=== PATIENT | male | born 1990 | race American Indian/Alaskan Native ===

== ENCOUNTER 2017-12-05 20:41 | Emergency (ER) | payer SELFPAY ==
[2017-12-05 20:50] VITALS: O2SAT 98
[2017-12-05] MEDS ORDERED: Tdap Vaccine 0.5 ml Vial (10-64 yrs) IM ONE ×2 (20:56→21:05)
[2017-12-05] MEDS ORDERED: Amoxicillin-Clav 875-125 mg Tab PO STA (20:57)
[2017-12-05] MEDS ORDERED: Amoxicillin-Clav 875-125 mg Tab PO ONE (21:05)
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
[2017-12-05 22:11] VITALS: BP 120/60; PULSE 75; RESP 20; TEMP 98.7
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
== END 2017-12-05 22:39 | disposition home or self-care (01) ==
LOC: C.ER 20:41
DX: S61.411A Laceration without foreign body of right hand, initial encounter (principal); Y04.0XXA Assault by unarmed brawl or fight, initial encounter

== ENCOUNTER 2017-12-08 13:10 | Emergency (ER) | payer SELFPAY ==
[2017-12-08 13:17] VITALS: O2SAT 95
[2017-12-08] MEDS ORDERED: Bacitracin 500 Units/gm Oint Foilpak UD TOP STA (13:53)
[2017-12-08] MEDS ORDERED: ceFAZolin IV 1 gm in Dextrose 1 GM/50 ML BAG IVPB STA (13:54)
[2017-12-08] MEDS ORDERED: Bacitracin 500 Units/gm Oint Foilpak UD ONE (14:27)
[2017-12-08] MEDS ORDERED: ceFAZolin IV 1 gm in Dextrose 1 GM/50 ML BAG IVPB ONE (14:27)
--- NOTE | 2017-12-08 14:49 | C.PDOC ---
Time Seen by Provider: 12/08/17 13:11 Chief Complaint (Nursing): Wound Check Past Medical History Vital Signs: Last Vital Signs Temp 98.3 F 12/08/17 13:15 Pulse 84 12/08/17 13:15 Resp 18 12/08/17 13:15 BP 119/70 12/08/17 13:15 Pulse Ox 95 12/08/17 13:15 Family History: States: Unknown Family Hx - Social History Hx Alcohol Use: No Hx Substance Use: No - Immunization History Hx Tetanus Toxoid Vaccination: No Hx Influenza Vaccination: No Hx Pneumococcal Vaccination: No ED Course And Treatment O2 Sat by Pulse Oximetry: 95 Disposition Counseled Patient/Family Regarding: Diagnosis, Need For Followup - Disposition Referrals: Axel Betts MD [Staff Provider] - Disposition: HOME/ ROUTINE Disposition Time: 14:50 Condition: STABLE Additional Instructions: FOLLOW UP WITH HAND SURGEON TOMORROW SCHEDULED CONTINUE YOUR ANBTIBIOTICS RETURN TO ER IF SYMPTOMS WORSEN, SUCH WORSENING REDNESS, SWELLING, PAIN, DISCHARGE, FEVER, ETC Instructions: Laceration Infection (DC), Cellulitis (Skin Infection), Adult (DC ) Print Language: LITHUANIAN - POA Present On Arrival: Falls Or Trauma - Clinical Impression Clinical Impression: Laceration of right hand, Cellulitis of hand
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
[2017-12-08 15:35] VITALS: BP 120/75; PULSE 89; RESP 16; TEMP 98.5
== END 2017-12-08 15:30 | disposition home or self-care (01) ==
LOC: C.ER 13:10
DX: S61.411D Laceration without foreign body of right hand, subsequent encounter (principal); L03.113 Cellulitis of right upper limb; Y08.89XD Assault by other specified means, subsequent encounter
CPT/HCPCS: 96365; 99284; J0690